=== PATIENT | male | born 1960 | race Caucasian/White ===

== ENCOUNTER 2020-03-22 14:56 | Emergency (ER) | payer OTHER, SELFPAY ==
--- NOTE | ~2020-03-22 | XR_ITS ---
EXAMINATION: XR knee RT min 4V EXAM DATE: 03/22/2020 15:27 INDICATION: No known recent injury provided at this time. Pain of the right knee. TECHNIQUE: Right knee lateral, frontal AP, frontal PA tunnel, sunrise projections. There is no prior study for comparison. FINDINGS: No evidence osteochondral defect or joint body in the right knee joint. There are no acut e fractures or dislocations identified. There is no subcutaneous gas. There is soft tissue swelling anterior to the patella and patellar tendon, nonspecific but could indicate prepatellar bursitis. Mil d suprapatellar enthesopathy. No joint effusion. There are no radiopaque foreign bodies. IMPRESSION: Right knee anterior swelling, possible prepatellar bursitis. Reviewed, dictated and finalized at location B.
[2020-03-22 15:13] VITALS: BP 133/86; PULSE 79; RESP 18; TEMP 36.8; O2SAT 98
--- NOTE | 2020-03-22 15:45 | ED.LOWEXIN ---
HPI - Extremity Injury (Lower) General Chief Complaint: Extremity Injury, Lower Stated Complaint: fluid on right knee History of Present Illness HPI Narrative: This is a 60 year old male that has had swelling of his knee for over a month. Patient originally though he had some cellulitis and was ordered a antibiotics but the swelling did not totally go away although the erythema did. Patient was not sure if it was a bug bite, cellulitis . Patient denies a lot of pain but there is fluid that can be felt and it is noticeable when he bends his knee . Patient is planning on getting appointment with Ortho Related Data Home Medications Medication Instructions Recorded Confirmed No Home Medications 03/22/20 03/22/20 Allergies Allergy/AdvReac Type Severity Reaction Status Date / Time Cat Dander AdvReac Unknown Dyspnea / Uncoded 02/23/20 10:55 SOB Review of Systems Review of Systems: Narrative: CONSTITUTIONAL: Denies fever, chills, or sweats. EYES: Denies visual changes, redness, or discharge. ENT: Denies rhinorrhea, congestion, sore throat, or otalgia. CARDIOVASCULAR:Denies chest pain, palpitations, or edema. RESPIRATORY: Denies cough or dyspnea. GASTROINTESTINAL: Denies abdominal pain, nausea, vomiting, or diarrhea. GENITOURINARY: Denies dysuria or hematuria. SKIN:[Denies rash or itching. MUSCULOSKELETAL:Denies back pain, joint pain, or myalgia. Right knee pain NEUROLOGIC: Denies headache, numbness, or weakness. PSYCHIATRIC:Denies anxiety or depression [facility] Family History Family History (System 02/23/20 @ 10:55 by Iraida Tubbs) Father Carcinoma of colon Other Diabetes mellitus Social History Social History (System 02/23/20 @ 10:55 by Iraida Tubbs) Smoking status: Never smoker Second hand tobacco smoke exposure: No Alcohol intake: current Gender identity (if verbalized by the patient): Male Comments At time as signature, I have reviewed and agree with nursing past medical, social, surgical and family history. Please see nursing chart for further information. There is no relevant family history pertinent to the presenting complaint. Your blood pressure was elevated in the clinic today, I feel that this is due to your acute illness rather than essential hypertension. please follow-up with your regular doctor for further evaluation and monitor for evaluation of hypertension Please LUANN schedule a followup visit with your personal physician with in the next 1-4 weeks for further evaluation and treatment. Also, ask your personal physician to assist you regarding blood pressure. Even blood pressure exceeding 120/80 may indicate pre-hypertension. If your symptoms persist, change or worsen significantly before you can contact your personal physician then please, without delay, go to the emergency department for further evaluation. Exam Narrative: Exam Narrative: GENERAL:Well-appearing, well-nourished, and in no acute distress. HEAD:Normocephalic, atraumatic. EYES: PERRLA and EOMI. ENT: Nares clear, no rhinorrhea or epistaxis. Mucous membranes moist. NECK: Supple. CHEST: Clear to auscultation. No respiratory distress. HEART: Regular rate and rhythm. No murmur heard. Normal peripheral pulses. ABDOMEN: Soft, nontender, nondistended, normal active bowel sounds. EXTREMITIES: decreased range of motion. right knee has edema.left knee has surgical scar SKIN: Warm, dry, no rash. NEURO: No focal deficits. Alert and oriented x3. Course Vital Signs Vital signs: Vital Signs Temperature 98.3 F 03/22/20 15:13 Pulse Rate 79 03/22/20 15:13 Respiratory Rate 18 03/22/20 15:13 Blood Pressure 133/86 03/22/20 15:13 Pulse Oximetry 98 03/22/20 15:13 Temperature 98.3 F 03/22/20 15:13 Pulse Rate 79 03/22/20 15:13 Respiratory Rate 18 03/22/20 15:13 Blood Pressure 133/86 03/22/20 15:13 Pulse Oximetry 98 03/22/20 15:13 MDM - Extremity Injury (Lower) MDM Narrative
== END 2020-03-22 16:13 | disposition home or self-care (01) ==
PROVIDERS: Emergency Provider Nurse Practitioner Family; PCP Family Medicine
DX: M70.41 Prepatellar bursitis, right knee (principal); S86.811A Strain of other muscle(s) and tendon(s) at lower leg level, right leg, initial encounter; X58.XXXA Exposure to other specified factors, initial encounter
CPT/HCPCS: 73564; 99213; G0463

== ENCOUNTER 2021-02-16 12:57 | Outpatient (CLI) | payer OTHER, SELFPAY ==
--- NOTE | ~2021-02-16 | CT_ITS ---
EXAMINATION: CT knee LT wo con DATE: 02/16/2021 13:21 INDICATION: Patellar pain at the left knee. TECHNIQUE: High resolution computed tomography (CT) of the left knee was performed without intravenou s contrast. Additional sagittal and coronal reconstructions were performed. Automated exposure contro l and iterative reconstruction technique were employed. The dose-length product was 470.36 mGy-cm. COMPARISON: Knee radiographs dated 06/23/2020 FINDINGS: Old healed patellar fracture which is fixed with 3 pins. 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 Chondrocalcinosis in the medial and lateral compartments. There are small ma rginal osteophytes consistent with at least mild osteoarthritis in the medial lateral compartments wi thout significant joint space narrowing although this could be underestimated on nonweightbearing minh ging. There are few small ossicles at the suprapatellar pouch along the medial and lateral margin of the cephalad aspect of the patella which could represent either chronic nonunited bone fragments, het erotopic ossification or degenerative loose osteochondral bodies. The contour of the fragment on the medial side favors the former. Minimal knee joint effusion at the suprapatellar pouch. IMPRESSION: 1. Old healed internally fixed patellar fracture with moderate to severe secondary patellofemoral ost eoarthritis. 2. Chondrocalcinosis and at least mild osteoarthritis in the medial and lateral compartments. Reviewed, dictated and finalized at location A. IMPRESSION: 1. Old healed internally fixed patellar fracture with moderate to severe second jim patellofemoral osteoarthritis. 2. Chondrocalcinosis and at least mild osteoarthritis in the medial and lateral compartments.
== END 2021-02-16 12:58 | disposition home or self-care (01) ==
LOC: ANHIMG 12:58
PROVIDERS: PCP Internal Medicine Infectious Disease; Visit Provider Orthopaedic Surgery
DX: M17.12 Unilateral primary osteoarthritis, left knee (principal)
CPT/HCPCS: 73700